=== PATIENT | female | born 2000 | race Hispanic/Latino ===

== ENCOUNTER 2021-10-05 14:07 | Emergency (ER) | payer OTHER ==
[2021-10-05] MEDS ORDERED: Acetaminophen 325 MG TAB ONE (15:58)
[2021-10-05] MEDS ORDERED: Boostrix 0.5 ML (Tdap) VIAL ONE (15:58)
== END 2021-10-05 16:23 | disposition home or self-care (01) ==
LOC: ERS 14:07
DX: S61.101A Unspecified open wound of right thumb with damage to nail, initial encounter (principal); W26.8XXA Contact with other sharp object(s), not elsewhere classified, initial encounter; Z23 Encounter for immunization; Z79.899 Other long term (current) drug therapy
CPT/HCPCS: 90471; 90715